=== PATIENT | female | born 1980 | race Caucasian/White ===

== ENCOUNTER → 2017-06-22 | Day surgery (SDC) | payer OTHER ==
[~2017-06-22] MED LIST: POLY119PG PO; PRENATAL TABLET1 TAB PO; Procardia 10MG CAP PO
== END | disposition home or self-care (01) ==
LOC: CIR.AMB 04:50
DX: O34.32 Maternal care for cervical incompetence, second trimester (principal); Z3A.16 16 weeks gestation of pregnancy

== ENCOUNTER 2017-10-25 14:43 | Outpatient (CLI) | payer OTHER ==
[~2017-10-25] VITALS: Ht 167.6 cm; Wt 80.7 kg
[2017-10-25] MEDS ORDERED: PRENATAL TABLE1 EAC1 PO (16:22)
== END 2017-10-26 12:16 | disposition home or self-care (01) ==
LOC: OBS/DEL 14:43 → LDR 15:01 → OBS/DEL 10-26 12:16
DX: O47.03 False labor before 37 completed weeks of gestation, third trimester (principal); O34.33 Maternal care for cervical incompetence, third trimester; O13.3 Gestational [pregnancy-induced] hypertension without significant proteinuria, third trimester; Z3A.32 32 weeks gestation of pregnancy; R82.79 Other abnormal findings on microbiological examination of urine

== ENCOUNTER 2017-11-19 05:26 | Inpatient (IN) | payer OTHER ==
[~2017-11-19] VITALS: Ht 167.6 cm; Wt 76.7 kg
[~2017-11-19 05:26] MED LIST changes: +PRENATAL TABLE1 EAC1 PO
== END 2017-11-21 09:25 | disposition home or self-care (01) | DRG 981 ==
LOC: LDR 05:26 → OB/GYN 05:26 → LDR 08:05 → OB/GYN 14:32
PROC: 10E0XZZ Delivery of Products of Conception, External Approach (ICD-10-PCS; principal; 2017-11-19)
PROC: 0UCC7ZZ Extirpation of Matter from Cervix, Via Natural or Artificial Opening (ICD-10-PCS; 2017-11-19)
PROC: 0KQM0ZZ Repair Perineum Muscle, Open Approach (ICD-10-PCS; 2017-11-19)
PROC: 10907ZC Drainage of Amniotic Fluid, Therapeutic from Products of Conception, Via Natural or Artificial Opening (ICD-10-PCS; 2017-11-19)
PROC: 4A1HXCZ Monitoring of Products of Conception, Cardiac Rate, External Approach (ICD-10-PCS; 2017-11-19)
DX: O70.1 Second degree perineal laceration during delivery (principal); O34.33 Maternal care for cervical incompetence, third trimester; Z37.0 Single live birth; O99.02 Anemia complicating childbirth; Z3A.36 36 weeks gestation of pregnancy